=== PATIENT | female | born 1965 | race Caucasian/White ===

== ENCOUNTER 2017-08-28 11:41 | Emergency (ER) | payer MEDICARE, OTHER ==
[~2017-08-28] VITALS: Ht 172.7 cm; Wt 73.0 kg
[2017-08-28 12:17] LABS: CLARITY,URINE SLIGHTLY CLOUDY (Clear); COLOR,URINE YELLOW (Yellow); GLUCOSE, URINE NEGATIVE (Neg); KETONES,URINE NEGATIVE (Neg); LEUKOCYTE ESTERASE ,URINE NEGATIVE (Neg); NITRITES, URINE NEGATIVE (Neg); OCCULT BLOOD,URINE TRACE-INTACT (Neg); PROTEIN,URINE NEGATIVE (Neg); UA COLLECTION TYPE CLN CATCH MIDSTREAM; UROBILINOGEN,URINE 0.2 E.U/dL (0.2-1.0)
[2017-08-28 12:26] LABS: BACTERIA,URINE 1+ /HPF (Neg); MUCUS STRANDS MODERATE /LPF (Neg); SQUAMOUS EPITHELIAL CELL,UR MANY /LPF (FEW)
[2017-08-28 12:27] LABS: RBC,URINE 0-2 /HPF (0-2); WBC,URINE 0-4 /HPF (0-4)
[2017-08-28] MEDS ORDERED: IBUP-1986 PO (14:01)
[2017-08-28] MEDS ORDERED: RANI150T8 PO (14:01)
[2017-08-28 14:15] VITALS: BP 121/96
== END 2017-08-28 14:17 | disposition home or self-care (01) ==
LOC: ER 11:43
DX: S39.012A Strain of muscle, fascia and tendon of lower back, initial encounter (principal); K21.9 Gastro-esophageal reflux disease without esophagitis; Z86.73 Personal history of transient ischemic attack (TIA), and cerebral infarction without residual deficits; Z88.2 Allergy status to sulfonamides; Z87.442 Personal history of urinary calculi; X58.XXXA Exposure to other specified factors, initial encounter; Y93.9 Activity, unspecified; Y92.89 Other specified places as the place of occurrence of the external cause; Y99.8 Other external cause status
CPT/HCPCS: 81001; 99283

== ENCOUNTER 2021-11-15 10:00 | Day surgery (SDC) | payer MEDICARE ==
[2021-11-15] VITALS (8 sets, daily range): BP systolic 95–122; BP diastolic 55–69
[~2021-11-15] VITALS: Ht 175.3 cm; Wt 88.1 kg
[2021-11-15] MEDS: acetaminophen 325mg tablet PO ONE ×2 (05:30→11:17)
[2021-11-15] MEDS: celeCOXIB 100mg capsule PO ONE ×2 (05:30→11:16)
[~2021-11-15 10:00] MED LIST: DIVA500T2 PO; DOCUMENT DATE & TIME OF BETA-BLOCKER PO ONE; GABA600T13 PO; PROP60CA37 PO; QUET25TA36 PO; TERB250T89 PO; TOP100T PO; VENL75TA4 PO; albuterol 2.5 MG/3 ML nebule NEB ONE; ceFAZolin inj. 2,000 MG in dextrose 5%-water 100 ML IV ONE; famotidine 20mg tablet PO ONE; gabapentin 300mg capsule PO ONE; metoclopramide 5 mg/ml inj IV ONE; oxyCODONE SR 10mg (sust. release) tab -2 tabs (20mg) PO ONE; ringers solution, lacted 1,000 ML IV SCH; tranexamic acid inj. 1,000 MG in normal saline 100ml IV soln 90 ML IV ONE; vancomycin 1,500 MG in NS 300ml IV soln IV ONE
[2021-11-15] MEDS ORDERED: BUPIVAcaine/PF 2.5mg/ml (0.25%) 10ml vial ONE (10:35)
[2021-11-15] MEDS ORDERED: scopolamine 1mg/72 hr patch TD ONE (11:23)
[2021-11-15] MEDS ORDERED: cloNIDine hcl/PF 100mcg/ml inj ONE (11:28)
[2021-11-15] MEDS ORDERED: fentaNYL/PF 50MCG/1 ML 2ML syringe ONE (11:36)
[2021-11-15] MEDS ORDERED: midazolam 1 mg/ML 2ml injection ONE (11:37)
[2021-11-15 11:45] LABS: BASOPHILS # (AUTO) 0.1 X10'3 (0-0.2); BASOPHILS % (AUTO) 0.9 % (0-1); EOSINOPHILS # (AUTO) 0.2 X10'3 (0-0.9); EOSINOPHILS % (AUTO) 3.2 % (0-6); LYMPHOCYTES % (AUTO) 33.7 % (21-51); MEAN CORPUSCULAR HEMOGLOBIN 31.4 PG (27.0-31.0); MEAN CORPUSCULAR HGB CONC 33.4 g/dL (33.0-36.5); MEAN CORPUSCULAR VOLUME 93.9 FL (78-98); MONOCYTES # (AUTO) 0.4 X10'3 (0-0.9); MONOCYTES % (AUTO) 6.9 % (2-12); NEUTROPHILS # (AUTO) 3.3 X10'3 (1.8-7.7); NEUTROPHILS % (AUTO) 55.3 % (42-75); PRE OP HEMATOCRIT 37.8 % (35.0-45.0); PRE OP HEMOGLOBIN 12.6 g/dL (12.0-16.0); PRE OP PLATELET COUNT 264 X10'3 (140-440); RED BLOOD COUNT 4.03 X10'6 (4.20-5.60); RED CELL DISTRIBUTION WIDTH 13.9 % (11.5-14.5)
[2021-11-15 11:54] LABS: ALBUMIN 3.4 G/DL (3.4-5.0); ALKALINE PHOSPHATASE 65 IU/L (46-116); BLOOD UREA NITROGEN 23 MG/DL (7-18); BUN/CREATININE RATIO 30.3 (6.6-38.0); CALCIUM 8.2 MG/DL (8.5-10.1); CHLORIDE 109 MMOL/L (99-107); CREATININE 0.76 MG/DL (0.40-0.90); PRE OP ALT 13 U/L (30-65); PRE OP ANION GAP 12 (8-16); PRE OP AST 8 U/L (10-37); PRE OP BILIRUB, TOTAL 0.4 MG/DL (0.0-1.0); PRE OP GLUCOSE 93 MG/DL (70-104); PRE OP SODIUM 142 MMOL/L (135-145); TOTAL CARBON DIOXIDE 21.4 MMOL/L (24-32); TOTAL PROTEIN 6.7 G/DL (6.4-8.2); eGFR 78 ML/MIN
[2021-11-15] MEDS ORDERED: sevoflurane 250ml liquid IH ONE (12:01)
[2021-11-15] MEDS ORDERED: propofol inj 20 ML IV ONE (12:57)
[2021-11-15] MEDS ORDERED: ondansetron/PF 4mg/2ml inj ONE (12:57)
[2021-11-15] MEDS ORDERED: dexamethasone sod phosphate 4mg/ml inj. ONE (12:57)
--- NOTE | 2021-11-15 13:08 | NUR ---
Received from OR via [facility], accompanied by Anesthesiologist Gilmer report given by Anesthesiolgist. NO RESP DISTRESS, VSS, IV PATENT. SKIN WARM AND DRY.DSG CDI. FINGERS WARM. NOT MOVING YET.
[2021-11-15] MEDS ORDERED: morphine 2 MG/ML inj. syringe IV PRN (13:15)
[2021-11-15] MEDS ORDERED: morphine 4 MG/ML inj SYRINge IV PRN (13:15)
[2021-11-15] MEDS ORDERED: ondansetron/PF 4mg/2ml inj IV PRN (13:15)
[2021-11-15] MEDS ORDERED: ringers solution, lacted 1,000 ML IV SCH (13:15)
[2021-11-15] MEDS ORDERED: proCHLORperazine 10 MG/2 ml inj IV PRN (13:15)
[2021-11-15] MEDS ORDERED: meperidine/PF 25mg/ml syringe IV PRN ×3 (13:15)
--- NOTE | 2021-11-15 14:28 | NUR ---
PATIENT MEETS DISCHARGE CRITERIA. DISCHARGE INSTRUCTIONS GIVEN TO PATIENT. ALL BELONGINGS SENT WITH PATIENT. SISTER IS TRANSPORT.
== END 2021-11-15 14:28 | disposition home or self-care (01) ==
LOC: PAS 10:00
PROVIDERS: ATTEND Orthopaedic Surgery
DX: S52.572A Other intraarticular fracture of lower end of left radius, initial encounter for closed fracture (principal); K21.9 Gastro-esophageal reflux disease without esophagitis; F32.9 Major depressive disorder, single episode, unspecified; Z79.899 Other long term (current) drug therapy; Z98.890 Other specified postprocedural states; G89.18 Other acute postprocedural pain; F17.210 Nicotine dependence, cigarettes, uncomplicated; Z88.2 Allergy status to sulfonamides; Z88.8 Allergy status to other drugs, medicaments and biological substances; Z87.442 Personal history of urinary calculi; Z86.73 Personal history of transient ischemic attack (TIA), and cerebral infarction without residual deficits; X58.XXXA Exposure to other specified factors, initial encounter; Y93.89 Activity, other specified; Y92.89 Other specified places as the place of occurrence of the external cause; Y99.8 Other external cause status
CPT/HCPCS: 25609; 36415; 64417; 71045; 73100; 76942; 80053; 82948; 85025; 93005; A6222; C1713; J0690; J0735; J1100; J2250; J2405; J2704; J3010; J3370; J3490; J7030; J7040; J7060; J7120; Z7506; Z7508; Z7512; 76000; A4565; A4618; A6449; A7000